=== PATIENT | female | born 2000 | race Caucasian/White ===

== ENCOUNTER 2020-09-17 14:59 | Outpatient (CLI) | payer OTHER, SELFPAY ==
[2020-09-17 16:04] LABS: Alanine Aminotransferase 19 U/L (14-59); Albumin Level 4.6 g/dL (3.4-5.0); Alkaline Phosphatase 78 U/L (46-116); Anion Gap 8 mmol/L (8-16); Aspartate Amino Transferase 12 U/L (15-37); Bilirubin,Total 0.4 mg/dL (0.00-1.00); Blood Urea Nitrogen 7 mg/dL (7-18); Carbon Dioxide 29 mmol/L (21-32); Chloride 102 mmol/L (98-108); Estimated Glomerular Filt Rate > 60; Free T4 Free Thyroxine 0.99 ng/dL (0.76-1.46); Glucose 83 mg/dL (70-99); Osmolality Calculated 285 mOsm/kg (285-295); Potassium 3.7 mmol/L (3.5-5.1); Sodium 139 mmol/L (136-145); Thyroid Stimulating Hormone 1.56 uIU/mL (0.36-3.74); Total Protein 7.6 g/dL (6.4-8.2)
== END 2020-09-17 15:00 | disposition home or self-care (01) ==
LOC: CHSLAB 15:03
PROVIDERS: PCP Nurse Practitioner Family; Visit Provider Nurse Practitioner Family
DX: F41.1 Generalized anxiety disorder (principal)
CPT/HCPCS: 36415; 80053; 84439; 84443

== ENCOUNTER 2022-04-12 02:59 | Emergency (ER) | payer OTHER, SELFPAY ==
[2022-04-12] VITALS (8 sets, daily range): BP systolic 96–113; BP diastolic 62–74; PULSE 83–93; RESP 16–18; TEMP 36.3–36.7; O2SAT 100
--- NOTE | ~2022-04-12 | CT_ITS ---
EXAMINATION: CT abdomen pelvis wo con DATE: 04/12/2022 04:43 INDICATION: Epigastric abdominal pain. TECHNIQUE: Computed tomography (CT) of the abdomen and pelvis was performed without intravenous contr ast. Automated exposure control and iterative reconstruction technique were employed. The dose-length product was 172.64 mGy-cm. COMPARISON: None. FINDINGS: The visualized portions of the lung bases are clear without pneumonia or pleural effusion. The heart size is normal. No pericardial effusion. There is a 6 mm cyst in the liver. The gallbladder , spleen, pancreas, adrenal glands, and kidneys are normal. There is no urolithiasis. There are no di lated loops of bowel. The appendix is normal. There are no pathologically enlarged lymph nodes. There is no free intraperitoneal fluid. The bones are unremarkable. IMPRESSION: 1. No etiology for the patient's symptoms. Reviewed, dictated and finalized at location A.
--- NOTE | ~2022-04-12 | CT_ITS ---
EXAMINATION: CT brain wo con DATE: 04/12/2022 04:45 INDICATION: Seizure. TECHNIQUE: Computed tomography (CT) of the head was performed without intravenous contrast. The mA wa s adjusted according to patient size. Iterative reconstruction technique was employed. The dose-lengt h product was 605.33 mGy-cm. COMPARISON: None FINDINGS: There is no intracranial hemorrhage, acute infarction, or abnormal intracranial mass lesion . The ventricles are normal in size. The paranasal sinuses are clear. The orbits are normal. The mast oid air cells are normal. IMPRESSION: 1. Normal brain. Reviewed, dictated and finalized at location A. IMPRESSION: 1. Normal brain.
--- NOTE | ~2022-04-12 | XR_ITS ---
EXAMINATION: XR chest 1V portable DATE: 04/12/2022 04:44 INDICATION: Shortness of breath. Epigastric abdominal pain. TECHNIQUE: A single frontal view of the chest was obtained. COMPARISON: None. FINDINGS: The chest demonstrates clear lungs without pneumonia, pleural effusion, or pneumothorax. Th e heart size is normal. IMPRESSION: 1. No acute cardiopulmonary disease. Reviewed, dictated and finalized at location A.
--- NOTE | 2022-04-12 03:31 | ECG_ITS ---
Measurements Intervals [place] Rate: 84 P: 66 IN: 183 QRS: 92 QRSD: 87 T: 58 QT: 354 QTc: 421 Interpretive Statements SINUS RHYTHM BORDERLINE RIGHT AXIS DEVIATION [QRS AXIS > 90] NO PREVIOUS ECG AVAILABLE FOR COMPARISON Electronically Signed On 04-12-2022 16:50:16 CDT by Yue Jacobo M.D.
--- NOTE | 2022-04-12 03:40 | ED.SEIZURE ---
HPI - Seizure General Chief Complaint: Seizure Stated Complaint: possible.seizer Time Seen by Provider: 04/12/22 03:03 Source: patient, family, EMS and RN notes reviewed Mode of arrival: EMS Limitations: no limitations History of Present Illness complaint: possible seizure Onset (ago): hour(s) (1) Description of Episode: tonic-clonic movement and post-event confusion Witnessed: Yes - by Other Trauma: No Seizure History: Yes (uncertain) Place: home Possible Precipitating Event: none Associated symptoms: other (epigastric abdominal pain) Treatments prior to arrival: none Related Data Allergies Allergy/AdvReac Type Severity Reaction Status Date / Time No Known Allergies Allergy Verified 09/17/20 14:17 Review of Systems Review of Systems: All systems reviewed & are unremarkable except as noted in HPI and below Constitutional: Constitutional: Reports no additional constitutional complaints Eyes: Eyes: Reports no additional eye complaints ENT: Reports system reviewed and no additional complaints, except as documented Cardiovascular: Cardiovascular: Reports no additional cardiovascular complaints Respiratory: Respiratory: Reports no additional respiratory complaints Gastrointestinal: Gastrointestinal: Reports no additional gastrointestinal complaints Genitourinary: Genitourinary: Reports no additional female genitourinary complaints Musculoskeletal: Musculoskeletal: Reports no additional musculoskeletal complaints Integumentary/Breasts: Skin/Breast: Reports system reviewed and no additional complaints, except as docu Neurologic: Reports system reviewed and no additional complaints, except as documented Psychiatric: Psychiatric: Reports no additional psychiatric complaints Endocrine: Endocrine: Reports no additional endocrine complaints Hematologic/Lymphatic: Hematologic/Lymphatic: Reports no additional hematologic/lymphatic complaints Allergic/Immunologic: Allergic/Immunologic: Reports no additional allergic/immunologic complaints [facility] Past Medical History Medical History (Updated 04/12/22 @ 07:07 by Rochelle Mehta MD) Depression GIULIANA (generalized anxiety disorder) Moderate intellectual disabilities Patient underweight Seizure Social History Social History Smoking status: Never smoker Tobacco type: cigarettes Alcohol intake: never Substance use: never Substance use type: does not use Gender identity (if verbalized by the patient): Female Exam Const: General: healthy appearing and no acute distress Nutritional Appearance: thin Orientation/consciousness: patient oriented x3 Limitations: no limitations HENMT: Head: normal to inspection Ears: external ears normal, TM's normal bilaterally and EAC's normal General nose exam: Normal external nose present and Normal nares present Face and sinus: normal facial exam and sinuses nontender Mouth: Yes Normal oral and palatal mucosa present and Yes moist mucous membranes Teeth and gingiva: dentition normal Throat: posterior oropharynx normal Eyes: Conjunctivae: conjunctivae normal Pupils: Equal, round and reactive pupils present EOM: EOMs intact bilaterally Neck: Neck: normal visual inspection, no lymphadenopathy and no meningeal signs Chest: Chest palpation & inspection: normal inspection of the chest Resp: Effort & Inspection: normal respiratory effort Auscultation: clear to auscultation bilaterally Cardio: Rate: regular rate Rhythm: regular rhythm GI: GI Palp: Yes Soft to palpation and Yes Tenderness to palpation present (GI) (mild epigastric to lower sternal tenderness) Auscultation: normal bowel sounds : General: Yes bladder normal to palpation and Yes no CVA tenderness Bimanual exam- vagina & uterus: bladder normal to palpation Back/Spine/Pelvis: Back: no CVA tenderness Skin: General skin exam: normal color Rashes: no rashes Wounds: no wounds Neuro: Gener
[2022-04-12] MEDS: ONDANSETRON INJ 4 MG/2 ML VIAL IV PUSH (03:53)
[2022-04-12] MEDS: PANTOPRAZOLE SODIUM IV 40 MG VIAL IV PUSH (03:53)
[2022-04-12 03:59] LABS: Basophils Absolute Auto 0.04 K/mm3 (0.00-0.10); Basophils Percent Auto 0.7 % (0.0-1.0); Eosinophils Absolute Auto 0.05 K/mm3 (0.02-0.50); Eosinophils Percent Auto 0.9 % (1.0-6.0); Hematocrit 31.7 % (35.0-49.0); Hemoglobin 11.1 g/dL (12.0-15.0); Immature Granulocyte Absolute 0.02 K/mm3 (0.00-0.00); Immature Granulocyte Percent A 0.4 % (0.0-0.0); Lymphocytes Absolute Auto 1.27 K/mm3 (1.10-4.50); Lymphocytes Percent Auto 22.6 % (18.0-42.0); Mean Corpuscular Hemoglobin 30.7 pg (27.0-31.0); Mean Corpuscular Volume 87.8 fL (78.0-102.0); Mean Platelet Volume 9.4 fl (9.2-11.8); Monocytes Absolute Auto 0.49 K/mm3 (0.10-0.90); Monocytes Percent Auto 8.7 % (2.0-11.0); Neutrophils Absolute Auto 3.8 K/mm3 (1.7-7.2); Neutrophils Percent Auto 66.7 % (50.0-70.0); Platelet Count Result 222 K/mm3 (150-420); Red Blood Count 3.61 M/mm3 (4.20-5.40); Red Cell Distribution Width 11.4 % (11.6-14.4); White Blood Count 5.6 K/mm3 (4.8-10.8)
--- NOTE | 2022-04-12 04:00 | PC.NURSE ---
Pt resting, remains A&O x4, no c/o at this time, VSS.
[2022-04-12 04:01] LABS: Add Urine Microscopic? YES; Appearance Urine Clear (Clear); Bilirubin Urine Negative (Negative); Blood Urine Negative (Negative); Color Urine Light Yellow (Yellow); Glucose Urine UA Negative (Negative); Ketones Urine Negative (Negative); Leukocyte Esterase Ur 1+ (Negative); Nitrate Urine Negative (Negative); Protein Urine Negative (Negative); Specific Grav Ur 1.015 (1.010-1.020); Urobilinogen Urine 0.2 mg/dL (0.2-1.0); pH Urine 6.5 (5.0-8.0)
[2022-04-12] MEDS: levETIRAcetam IV 500 MG/5 ML VIAL 1000 MG (04:05)
[2022-04-12 04:07] LABS: RBC Urine 0-2 /hpf (0-2)
[2022-04-12 04:08] LABS: Bacteria Urine Trace /hpf; Squamous Epithelial Cell Urine Few /hpf (Few)
[2022-04-12] MEDS: SODIUM CHLORIDE 0.9% IV 100 ML 400 ML (04:08)
[2022-04-12 04:17] LABS: Alanine Aminotransferase 20 U/L (14-59); Albumin Level 3.6 g/dL (3.4-5.0); Alkaline Phosphatase 64 U/L (46-116); Anion Gap 11 mmol/L (8-16); Aspartate Amino Transferase 12 U/L (15-37); Bilirubin,Total 0.3 mg/dL (0.00-1.00); Blood Urea Nitrogen 9 mg/dL (7-18); Calcium 8.2 mg/dL (8.5-10.1); Carbon Dioxide 25 mmol/L (21-32); Chloride 104 mmol/L (98-108); Estimated CRCL calculation 85 ml/min; Estimated Glomerular Filt Rate > 60; Glucose 94 mg/dL (70-99); Osmolality Calculated 288 mOsm/kg (285-295); Potassium 3.4 mmol/L (3.5-5.1); Sodium 140 mmol/L (136-145); Total Protein 6.1 g/dL (6.4-8.2); Troponin I 6.1 ng/L (0.00-60.4)
[2022-04-12 04:18] LABS: Ethanol < 3 mg/dL (0-6); SPREG INTERNAL CONTROL Positive; Serum Qual hCG Negative
[2022-04-12 04:20] LABS: Lactic Acid Reflex 0.9 mmol/L (0.4-2.0)
[2022-04-12] MEDS: SODIUM CHLORIDE 0.9% IV 1,000 ML 125 ML IV CONT (04:30)
--- NOTE | 2022-04-12 05:06 | PC.NURSE ---
Pt sleeping, awakens easily, no seizure activity, remains alert. Awaiting test/CT results.
--- NOTE | 2022-04-12 06:39 | PC.NURSE ---
Pt sleeping, VSS, awakens easily. POC for d/c home discussed c pt and call placed to pts emergency contact to discuss POC.
[2022-04-12] MEDS: CALCIUM CARBONATE (TUMS) 500 MG (200 MG ELEMENTAL) 1000 MG PO (07:21)
[2022-04-12] MEDS: cefTRIAXone 1 GM, LIDOCAINE HCL 1% LOCAL INJ 2.1 ML IM (07:23)
--- NOTE | 2022-04-12 07:23 | PC.NURSE ---
SIG OTHER ARRIVES TO TRANSPORT PT HOME. DURING DC INSTRUCTIONS, ERP ENTERS REPORTING PT HAS UTI AND WILL NEED TREATED PRIOR TO DC. PT IS TREATED, DC INSTRUCTIONS UPDATED. SIG OTHER VERBALIZED UNDERSTANDING OF DC AND FOLLOW UP INSTRUCTIONS. PT IS ALERT, TALKING, AND AMBULATORY.
== END 2022-04-12 07:25 | disposition home or self-care (01) ==
PROVIDERS: Emergency Provider Emergency Medicine; PCP Nurse Practitioner Family
DX: G40.909 Epilepsy, unspecified, not intractable, without status epilepticus (principal); K29.70 Gastritis, unspecified, without bleeding; N39.0 Urinary tract infection, site not specified
CPT/HCPCS: 36415; 70450; 71045; 74176; 80053; 80307; 81001; 83605; 84484; 84703; 85025; 93005; 96361; 96372; 96374; 96375; 99284; A9270; C9113; J1953; J2405; J7030

== ENCOUNTER 2022-05-02 10:34 | Outpatient (CLI) | payer OTHER, SELFPAY ==
--- NOTE | 2022-05-02 12:57 | P.NEURO_ITS ---
Neurology EEG Report General Information Date of Study: 05/02/22 TEST Routine EEG DIAGNOSIS Seizure CONDITION OF RECORDING Awake and Drowsy EEG NUMBER [id number] CLINICAL HISTORY Patient reports she had a head injury in 2018 and has had headaches since then. A month ago she lost consciousness and had seizure like activity with tongue biting. EEG DESCRIPTION During the awake state with eyes closed the background consists of a very well formed 12 Hz posterior dominant rhythm which attenuates appropriately with eye opening. The recording is continuous. There is a well developed anterior- posterior gradient. No significant asymmetries of background activities are noted. With drowsiness there is was waxing and waning of the dominant rhythm with eventual replacement by a mixture of beta, alpha, and theta activity. Stage II sleep was not achieved. There were no abnormal responses to photic stimulation. There are no epileptiform discharges or seizures during this recording. She had episodes of eye fluttering during the recording that did not have any ictal correlate. IMPRESSION This is a normal routine EEG recorded in awake and drowsy states. There are no electrographic seizures identified, nor are there any epileptiform discharges. Please note that a normal EEG cannot exclude a seizure disorder. Clinical correlation is recommended.
== END 2022-05-02 10:35 | disposition home or self-care (01) ==
PROVIDERS: PCP Nurse Practitioner Family; Visit Provider Psychiatry & Neurology Neurology
DX: R56.9 Unspecified convulsions (principal)
CPT/HCPCS: 95816

== ENCOUNTER 2022-05-30 00:54 | Day surgery (SDC) | payer OTHER, SELFPAY ==
[2022-05-12 13:37] VITALS: BMI 18.1
[2022-05-30 11:41] VITALS: BP 97/53; PULSE 73; RESP 15; TEMP 36.4; O2SAT 100; BMI 17.5
--- NOTE | 2022-05-30 11:42 | PM.HPGS ---
History of Present Illness History of Present Illness Consent: Risks, benefits, and alternatives have been discussed and questions answered. Patient agrees to proceed with procedure. Chief complaint: epigastric pain Narrative: Nikki Smiley is a 21 year old female with epigastric pain and nausea, recent CT negative for acute findings, never had egd Review of Systems Constitutional: Constitutional: Denies headache(s) and Denies weakness Eyes: Eyes: Denies blurry vision ENT: Reports Normal hearing present, Denies headache(s) and Denies neck pain Cardiovascular: Cardiovascular: Denies chest pain and Denies dyspnea Respiratory: Respiratory: Denies dyspnea Gastrointestinal: Gastrointestinal: Reports no additional gastrointestinal complaints Genitourinary: Genitourinary: Denies dysuria Musculoskeletal: Musculoskeletal: Denies neck pain Integumentary/Breasts: Skin/Breast: Denies dry skin Neurologic: Reports Normal hearing present, Reports seizure-like activity and Denies weakness Psychiatric: Psychiatric: Denies anxiety Endocrine: Endocrine: Denies change in body appearance Hematologic/Lymphatic: Hematologic/Lymphatic: Denies easy bleeding Allergic/Immunologic: Allergic/Immunologic: Denies urticaria PMFSH Past Medical History Medical History (Updated 04/28/22 @ 11:42 by Leyla Silverio, TATE) Depression Epigastric abdominal pain GIULIANA (generalized anxiety disorder) Liver cyst Moderate intellectual disabilities Nausea Patient underweight Seizure Social History Social History Smoking status: Never smoker Tobacco type: cigarettes Alcohol intake: never Substance use: never Substance use type: does not use Living arrangements: with friend(s) Gender identity (if verbalized by the patient): Female Meds Home Medications and Allergies Home Medications Medication Instructions Recorded Confirmed Type cephalexin 500 mg capsule 500 mg PO Q8H #30 caps 04/12/22 05/30/22 Rx levetiracetam 500 mg tablet 500 mg PO BID #60 tabs 04/14/22 05/30/22 Rx (Keppra) ondansetron 4 mg disintegrating 4 mg PO Q8H #14 tabs 04/28/22 05/30/22 Rx tablet omeprazole 20 mg capsule,delayed See Rx Instructions .Route 05/19/22 05/30/22 Rx release .COMPLEX #60 caps Allergies Allergy/AdvReac Type Severity Reaction Status Date / Time No Known Allergies Allergy Verified 05/30/22 11:33 Vital Signs Vital Signs - 24 hr 05/30/22 11:41 Temperature 97.5 F L Pulse Rate 73 Respiratory Rate 15 Blood Pressure 97/53 L Pulse Oximetry 100 Oxygen Delivery Room Air Exam Const: General: comfortable and no acute distress HENMT: General nose exam: Normal nares present Eyes: General: appearance normal, both eyes and all related structures Neck: Neck: no JVD Resp: Auscultation: clear to auscultation bilaterally Cardio: Rate: regular rate Rhythm: regular rhythm GI: Inspection: non-distended GI Palp: Yes Soft to palpation Skin: General skin exam: normal color Neuro: General: gait normal Speech: normal speech Extrem: General: normal to inspection Psych: Mental Status: mental status grossly normal Assessment and Plan Assessment and plan (1) Nausea: Code(s): R11.0 - Nausea Status: Acute Assessment and Plan: egd with biopsies (2) Epigastric abdominal pain: Code(s): R10.13 - Epigastric pain Status: Acute
[2022-05-30] MEDS: LACTATED RINGERS 1,000 ML 150 ML IV CONT (11:48)
--- NOTE | 2022-05-30 11:53 | WPDANESEPPF ---
Anes - Initial Pre Proc Eval Procedure: Operation Date: 05/30/22 12:30 Proposed Procedures p Esophagogastroduodenoscopy - Scottie Cook MD Date/Time: 05/30/22 11:53 Surgeon: Scottie Cook MD Pre Op Diagnosis: epigastric pain Patient Data Age: 21 Gender: F Height: 1.55 m Weight: 42.1 kg Last Vital Signs Temp 36.4 C L 05/30/22 11:41 Pulse 73 05/30/22 11:41 Resp 15 05/30/22 11:41 BP 97/53 L 05/30/22 11:41 Pulse Ox 100 05/30/22 11:41 O2 Del Method Room Air 05/30/22 11:41 Allergies Allergy/AdvReac Type Severity Reaction Status Date / Time No Known Allergies Allergy Verified 05/30/22 11:33 Home Medications Medication Instructions Recorded Confirmed Type cephalexin 500 mg capsule 500 mg PO Q8H #30 caps 04/12/22 05/30/22 Rx levetiracetam 500 mg tablet 500 mg PO BID #60 tabs 04/14/22 05/30/22 Rx (Keppra) ondansetron 4 mg disintegrating 4 mg PO Q8H #14 tabs 04/28/22 05/30/22 Rx tablet omeprazole 20 mg capsule,delayed See Rx Instructions .Route 05/19/22 05/30/22 Rx release .COMPLEX #60 caps Patient hx anesthesia problems: none Family hx anesthesia problems: none Results Review: All pre-operative results and documents have been reviewed as part of the pre-operative evaluation. [facility] Past Medical History Medical History Depression Epigastric abdominal pain GIULIANA (generalized anxiety disorder) Liver cyst Moderate intellectual disabilities Nausea Patient underweight Seizure Social History Social History Smoking status: Never smoker Tobacco type: cigarettes Alcohol intake: never Substance use: never Substance use type: does not use Living arrangements: with friend(s) Gender identity (if verbalized by the patient): Female Anes - Eval Final PreProcedure Day of Procedure 05/30/22 11:53 Patient weight: normal Heart: regular rate and rhythm Lungs: clear to auscultation Airway: Mallampati scale class II Neurological: alert and oriented Last oral intake: >/= 8 hours ASA classification: III Emergent: no Anesthetic plan: proceed Anesthesia type and monitoring: general GIVS and standard monitoring Results Review: All pre-operative results and documents have been reviewed as part of the pre-operative evaluation. Informed Consent: The patient's anesthetic plan and its attendant risks and benefits were discussed with the patient/family/POA. Questions were solicited and answers provided to the satisfaction of the patient/family/POA.
[2022-05-30 12:12] VITALS: BP 85/55; PULSE 86; RESP 16; O2SAT 98
[2022-05-30 12:22] VITALS: BP 93/61; PULSE 92; RESP 21; O2SAT 100
[2022-05-30 12:32] VITALS: BP 103/72; PULSE 93; RESP 15; O2SAT 100
== END 2022-05-30 13:00 | disposition home or self-care (01) ==
PROVIDERS: PCP Nurse Practitioner Family; Visit Provider Internal Medicine Gastroenterology
PROC: 0DJ08ZZ Inspection of Upper Intestinal Tract, Via Natural or Artificial Opening Endoscopic (ICD-10-PCS; CPT 43235; principal; 2022-05-30 12:30)
DX: R11.0 Nausea (principal); R10.13 Epigastric pain; K29.50 Unspecified chronic gastritis without bleeding; F32.A Depression, unspecified; F41.1 Generalized anxiety disorder; K76.89 Other specified diseases of liver; F71 Moderate intellectual disabilities
CPT/HCPCS: 43239; 88305; J2704; J7120

== ENCOUNTER 2022-06-01 14:47 | Outpatient (CLI) | payer OTHER, SELFPAY ==
[2022-06-01 15:01] LABS: Basophils Absolute Auto 0.02 K/mm3 (0.00-0.10); Basophils Percent Auto 0.3 % (0.0-1.0); Eosinophils Absolute Auto 0.05 K/mm3 (0.02-0.50); Eosinophils Percent Auto 0.7 % (1.0-6.0); Hemoglobin 12.4 g/dL (12.0-15.0); Immature Granulocyte Absolute 0.01 K/mm3 (0.00-0.00); Immature Granulocyte Percent A 0.1 % (0.0-0.0); Immature Reticulocyte Fraction 4.7 % (2.0-16.52); Lymphocytes Absolute Auto 0.95 K/mm3 (1.10-4.50); Lymphocytes Percent Auto 12.6 % (18.0-42.0); Mean Corpuscular HGB Conc 34.4 g/dL (32.0-36.0); Mean Corpuscular Hemoglobin 30.2 pg (27.0-31.0); Mean Corpuscular Volume 87.8 fL (78.0-102.0); Monocytes Absolute Auto 0.64 K/mm3 (0.10-0.90); Monocytes Percent Auto 8.5 % (2.0-11.0); Neutrophils Absolute Auto 5.9 K/mm3 (1.7-7.2); Neutrophils Percent Auto 77.8 % (50.0-70.0); Platelet Count Result 208 K/mm3 (150-420); Red Cell Distribution Width 11.7 % (11.6-14.4); Reticulocyte Hemoglobin Conten 33.5 pg (28.0-35.0); Reticulocyte Percent 1.61 % (0.50-1.50); Reticulocytes Absolute 0.07 M/mm3 (0.02-0.1); White Blood Count 7.6 K/mm3 (4.8-10.8)
[2022-06-01 15:42] LABS: Alanine Aminotransferase 27 U/L (14-59); Albumin Level 4.3 g/dL (3.4-5.0); Alkaline Phosphatase 79 U/L (46-116); Anion Gap 8 mmol/L (8-16); Aspartate Amino Transferase 15 U/L (15-37); Bilirubin,Total 0.6 mg/dL (0.00-1.00); Blood Urea Nitrogen 14 mg/dL (7-18); Calcium 9.1 mg/dL (8.5-10.1); Carbon Dioxide 31 mmol/L (21-32); Chloride 102 mmol/L (98-108); Estimated Glomerular Filt Rate > 60; Ferritin 140 ng/mL (8-252); Glucose 95 mg/dL (70-99); Iron 32 ug/dL (50-170); Osmolality Calculated 292 mOsm/kg (285-295); Percent Iron Saturation 11 % (12-57); Potassium 3.8 mmol/L (3.5-5.1); Sodium 141 mmol/L (136-145); Total Protein 7.1 g/dL (6.4-8.2)
[2022-06-05 07:14] LABS: Red Blood Cell Folate 636 ng/mL RBC (>280)
== END 2022-06-01 14:48 | disposition home or self-care (01) ==
LOC: CHSLAB 14:49
PROVIDERS: PCP Nurse Practitioner Family; Visit Provider Nurse Practitioner Family
DX: Z86.2 Personal history of diseases of the blood and blood-forming organs and certain disorders involving the immune mechanism (principal)
CPT/HCPCS: 36415; 80053; 82728; 82747; 83540; 83550; 85025; 85046

== ENCOUNTER 2022-08-10 10:09 | Outpatient (CLI) | payer SELFPAY | END 2022-08-10 10:10 | disposition home or self-care (01) | PROVIDERS: PCP Nurse Practitioner Family; Visit Provider Nurse Practitioner Family | DX: R63.6 Underweight (principal); R10.13 Epigastric pain | CPT/HCPCS: 99199 ==

== ENCOUNTER 2022-09-20 07:41 | Outpatient (CLI) | payer OTHER, SELFPAY ==
--- NOTE | ~2022-09-20 | US_ITS ---
Limited Abdominal Sonogram: Real-time sonographic imaging of the right upper quadrant was performed. Clinical History: Liver cyst Findings: The liver appears normal with no evidence of mass lesion or bile duct dilatation. Main por herbert vein demonstrates normal direction of flow. The gallbladder is well distended, and appears normal with no evidence of gallstone or wall thickening. The common bile duct measures 3 mm. The visualize d pancreas, aorta, and IVC are unremarkable. Impression: No significant abnormality seen. Reviewed, dictated and finalized at location . 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
== END 2022-09-20 07:42 | disposition home or self-care (01) ==
PROVIDERS: PCP Nurse Practitioner Family; Visit Provider Nurse Practitioner
DX: K76.89 Other specified diseases of liver (principal)
CPT/HCPCS: 76705

== ENCOUNTER 2022-11-02 11:11 | Outpatient (CLI) | payer OTHER, SELFPAY ==
[2022-11-04 11:17] LABS: TB Skin Test Erythema 0 mm; TB Skin Test Induration 0 mm (0-10); TB Skin Test Interpretation Negative (Negative); TB Skin Test Site Left Arm
== END 2022-11-02 11:12 | disposition home or self-care (01) ==
LOC: CHSLAB 11:13
PROVIDERS: PCP Nurse Practitioner Family; Visit Provider Nurse Practitioner Family
DX: Z02.0 Encounter for examination for admission to educational institution (principal)
CPT/HCPCS: 36415; 86580

== ENCOUNTER 2022-11-09 13:33 | Outpatient (CLI) | payer OTHER, SELFPAY ==
[2022-11-11 15:22] LABS: TB Skin Test Erythema 0 mm; TB Skin Test Induration 0 mm (0-10); TB Skin Test Interpretation Negative (Negative); TB Skin Test Site Right Arm
== END 2022-11-09 13:34 | disposition home or self-care (01) ==
LOC: CHSLAB 13:34
PROVIDERS: PCP Nurse Practitioner Family; Visit Provider Nurse Practitioner Family
DX: Z02.0 Encounter for examination for admission to educational institution (principal)
CPT/HCPCS: 36415; 86580

== ENCOUNTER 2023-07-19 09:04 | Outpatient (CLI) | payer OTHER, SELFPAY ==
--- NOTE | 2023-07-20 12:11 | WPDNEUROLOGY ---
Neurology EEG Report General Information Date of Study: 07/19/23 TEST Routine EEG DIAGNOSIS Epilepsy CONDITION OF RECORDING Awake, drowsy EEG NUMBER [id number] CLINICAL HISTORY Patient reports she had one seizure over a year ago which she believes was caused by an infection. EEG DESCRIPTION During the awake state with eyes closed the background consists of 12 Hz posterior dominant rhythm which attenuates appropriately with eye opening. The recording is continuous. There is a well developed anterior-posterior gradient. No significant asymmetries of background activities are noted. With drowsiness there is waxing and waning of the dominant rhythm with eventual replacement by a mixture of beta, alpha, and theta activity. Patient did not enter stage II sleep. There are no epileptiform discharges or seizures during this recording. IMPRESSION This is a normal routine EEG recorded in awake and drowsy states. There are no electrographic seizures identified, nor are there any epileptiform discharges. Please note that a normal EEG cannot exclude a seizure disorder. Clinical correlation is recommended.
== END 2023-07-19 09:05 | disposition home or self-care (01) ==
LOC: ANHNEURO 09:06
PROVIDERS: PCP Nurse Practitioner Family; Visit Provider Psychiatry & Neurology Neurology
DX: G40.909 Epilepsy, unspecified, not intractable, without status epilepticus (principal)
CPT/HCPCS: 95816

== ENCOUNTER 2024-01-04 13:29 | Outpatient (CLI) | payer OTHER, SELFPAY ==
--- NOTE | ~2024-01-04 | MR_ITS ---
EXAMINATION: MR brain/brain stem wo con DATE: 01/04/2024 14:14 INDICATION: Seizure. TECHNIQUE: Magnetic resonance imaging (MRI) of the brain and brainstem was performed without intraven ous contrast. COMPARISON: Head CT 04/12/2022 FINDINGS: The hippocampi are normal and symmetric. There is no intracranial hemorrhage, acute infarct ion, or abnormal intracranial mass lesion. The ventricles are normal in size. The orbits are normal. The paranasal sinuses are clear. The mastoid air cells are normal. IMPRESSION: 1. Normal brain. Reviewed, dictated and finalized at location E. IMPRESSION: 1. Normal brain.
== END 2024-01-04 13:30 | disposition home or self-care (01) ==
PROVIDERS: PCP Nurse Practitioner Family; Visit Provider Student in an Organized Health Care Education/Training Program
DX: R56.9 Unspecified convulsions (principal)
CPT/HCPCS: 70551